=== PATIENT | female | born 1980 | race Caucasian/White ===

== ENCOUNTER 2020-12-26 20:06 | Emergency (ER) | payer BC ==
[~2020-12-26] VITALS: Ht 167.6 cm; Wt 218.2 kg
[~2020-12-26 20:06] MED LIST: ADALAT CC30 MG PO; ALDOMET 250MG250 MG PO; CELEXA 20MG20 MG/TAB PO; FLEXERIL 1010 MG/TAB PO; HCTZ12.5TAB PO; MOTRIN 600600 MG/TAB PO; MOTRIN 800800 MG/TAB PO; NORCO 325 MG-51 TAB PO; NORVASC 10MG10 MG PO; PERCOCET 325 MG1 TA2; PROCARDIA XL90 MG PO
[2020-12-26 20:17] VITALS: TEMP 98.3
[2020-12-26 21:52] LABS: COLLECTION METHOD CLEAN CATCH
[2020-12-26 22:22] LABS: PH 5 (5-8); URINE APPEARANCE Hazy; URINE BACTERIA Rare /hpf; URINE BILIRUBIN Negative (NEGATIVE); URINE BLOOD 2+ (NEGATIVE); URINE COLOR Yellow; URINE GLUCOSE Negative (NEGATIVE); URINE KETONE Negative (NEGATIVE); URINE LEUKOCYTE ESTERASE 2+ (NEGATIVE); URINE NITRATE Negative (NEGATIVE); URINE PROTEIN(semi-quant) Negative (NEGATIVE); URINE RBC 0-2 /hpf; URINE UROBILINOGEN Negative (NEGATIVE)
[2020-12-26] MEDS ORDERED: MACROBID 1100 MG/CAP PO (22:35)
[2020-12-26 22:40] VITALS: BP 132/70; PULSE 76
== END 2020-12-26 22:40 | disposition home or self-care (01) ==
LOC: COL.ER 20:06
PROVIDERS: Emergency Medicine
DX: N39.0 Urinary tract infection, site not specified (principal); Z32.02 Encounter for pregnancy test, result negative; Z90.49 Acquired absence of other specified parts of digestive tract
CPT/HCPCS: J1885